=== PATIENT | female | born 1995 | race African-American/Black ===

== ENCOUNTER 2024-01-18 22:08 | Emergency (ER) | payer MEDICAID ==
[~2024-01-18] VITALS: Ht 167.6 cm; Wt 65.0 kg
[2024-01-18 22:18] VITALS: BP 132/84; TEMP 98.4
[2024-01-18 23:06] VITALS: PULSE 79
== END 2024-01-18 23:06 | disposition home or self-care (01) ==
LOC: COL.ER 22:08
DX: S30.861A Insect bite (nonvenomous) of abdominal wall, initial encounter (principal); F17.210 Nicotine dependence, cigarettes, uncomplicated; W57.XXXA Bitten or stung by nonvenomous insect and other nonvenomous arthropods, initial encounter

== ENCOUNTER 2024-07-03 17:51 | Emergency (ER) | payer SELFPAY ==
[~2024-07-03] VITALS: Ht 167.6 cm; Wt 65.9 kg
[2024-07-03 18:00] VITALS: BP 130/74; TEMP 98.9
[2024-07-03] MEDS ORDERED: ZOLOFT 25MG25 MG PO (18:00)
[2024-07-03 19:17] VITALS: PULSE 88
== END 2024-07-03 19:17 | disposition home or self-care (01) ==
LOC: COL.ER 17:51
DX: B34.9 Viral infection, unspecified (principal); J02.9 Acute pharyngitis, unspecified; R05.9 Cough, unspecified; R09.81 Nasal congestion; R07.9 Chest pain, unspecified